=== PATIENT | male | born 1955 | race Caucasian/White ===

== ENCOUNTER 2023-10-20 15:29 | Inpatient (IN) | payer MEDICARE, OTHER ==
[~2023-10-20] VITALS: Ht 167.6 cm; Wt 52.6 kg
[2023-10-20 16:07] LABS: BASOPHILS % (AUTO) 0.3 % (0.0-2.0); HEMATOCRIT 46 % (39-51); HEMOGLOBIN 14.9 g/dL (13.5-17.5); LYMPHOCYTES # (AUTO) 0.8 K/uL (0.8-4.8); LYMPHOCYTES % (AUTO) 5.2 % (20.0-44.0); MEAN CORPUSCULAR HEMOGLOBIN 30 PG (26.0-33.0); MEAN CORPUSCULAR HGB CONC 33 g/dl (31.0-36.0); MEAN CORPUSCULAR VOLUME 93 fL (80-96); MONOCYTES # (AUTO) 1.1 K/uL (0.1-1.30); MONOCYTES % (AUTO) 7.9 % (2.0-12.0); NEUTROPHILS # (AUTO) 12.6 K/uL (1.8-8.9); NEUTROPHILS % (AUTO) 86.6 % (43.0-81.0); PLATELET COUNT (AUTO) 276 K/uL (150-450); RED BLOOD CELL COUNT(AUTO) 4.94 MIL/uL (4.5-6.0); RED CELL DISTRIBUTION WIDTH 14.4 % (11.5-15.0); WHITE BLOOD COUNT (AUTO) 14.5 K/uL (4.3-11.0)
[2023-10-20 16:21] LABS: ALANINE AMINOTRANSFERASE 32 U/L (12-78); ALBUMIN 2.6 g/dL (3.4-5.0); ALKALINE PHOSPHATASE 87 U/L (46-116); ASPARTATE AMINOTRANSFERASE 7 U/L (15-37); BILIRUBIN,DIRECT 0.2 mg/dL (0.0-0.2); BILIRUBIN,TOTAL 0.6 mg/dL (0.2-1.0); CALCIUM, SERUM 9.5 mg/dL (8.5-10.1); CARBON DIOXIDE 35 mmol/L (21-32); CHLORIDE 93 mmol/L (98-107); CREATININE 0.4 mg/dL (0.6-1.3); GLUCOSE 215 mg/dL (74-106); LIPASE 18 U/L (16-77); POTASSIUM 4.1 mmol/L (3.5-5.1); SODIUM SERUM 132 mmol/L (136-145); TOTAL PROTEIN, SERUM 6.9 g/dL (6.4-8.2); UREA NITROGEN, BLOOD 19 mg/dL (7-18)
[2023-10-20 16:23] LABS: LACTIC ACID 1.5 mmol/L (0.4-2.0)
[2023-10-20] MEDS ORDERED: Z GUARD REMEDY 4 OZ OINT TP PRN (16:30)
[2023-10-20] MEDS ORDERED: hydrALAZINE HCL IV 20 MG VIAL IV PRN (16:30)
[2023-10-20] MEDS ORDERED: ONDANSETRON HCL/PF 4 MG/2 ML VIAL IVP PRN (16:30)
[2023-10-20] MEDS ORDERED: MORPHINE SULFATE INJ 2 MG/ML DISP.SYRIN IV PRN (16:30)
[2023-10-20] MEDS ORDERED: ACETAMINOPHEN 325 MG TABLET PO PRN (16:30)
[2023-10-20] MEDS ORDERED: DEXTROSE 50%-WATER 50 ML DISP.SYRIN IV PRN (16:30)
[2023-10-20] MEDS ORDERED: IV NS 0.9% 250 ML IV ONE (16:44)
[2023-10-20] MEDS ORDERED: IOHEXOL-300 100 ML VIAL IV ONE (16:44)
[2023-10-20 16:56] LABS: INR 1.08 (0.91-1.10); PARTIAL THROMBOPLASTIN TIME 28.1 SEC (24.3-34.3); PROTHROMBIN TIME 11.4 SECS (9.2-11.1)
[2023-10-20] MEDS ORDERED: DOCU100C36 PO (16:58)
[2023-10-20] MEDS ORDERED: ALBU2.5V11 IH (16:58)
[2023-10-20] MEDS ORDERED: ATOR20TA PO (16:58)
[2023-10-20] MEDS ORDERED: ALBU2.5V38 IH (16:58)
[2023-10-20] MEDS ORDERED: ENOX40DI SQ (16:58)
[2023-10-20] MEDS ORDERED: FAMO20TA8 PO (16:58)
[2023-10-20] MEDS ORDERED: INSU100V39 SQ (16:58)
[2023-10-20] MEDS ORDERED: SODI100037 PO (16:58)
[2023-10-20] MEDS ORDERED: HALO1TAB PO (16:58)
[2023-10-20] MEDS ORDERED: MIRT-90 PO (16:58)
[2023-10-20] MEDS ORDERED: GLUC1KIT IM (16:58)
[2023-10-20] MEDS: IV NS 0.9% 1,000 ML BAG IV ONE (17:30)
[2023-10-20] MEDS: PANTOPRAZOLE 40 MG VIAL IV SCH (17:30)
[2023-10-20] MEDS: PANTOPRAZOLE 40 MG VIAL IV ONE (17:30)
[2023-10-20] MEDS: BLOOD SUGAR DIAGNOSTIC 1 EACH STRIP IN SCH (17:30)
[2023-10-20] MEDS: CEFTRIAXONE 1GM BAG (ER ONLY) 1 GM/50 ML PIGGYBACK IV ONE (17:30)
[2023-10-20] MEDS: ONDANSETRON HCL/PF 4 MG/2 ML VIAL IVP ONE (17:35)
[2023-10-20 20:45] LABS: HEMOGLOBIN 14.9 g/dL (13.5-17.5)
[2023-10-20] MEDS: IV NS 0.9% 1,000 ML IV SCH (23:00)
[2023-10-20] MEDS: INSULIN REGULAR, HUMAN 100 UNIT/ML 3 ML VIAL SQ PRN (23:46)
[2023-10-20] MEDS: VANCOMYCIN 1 GM in IV D5W 250ml IV ONE (23:52)
[2023-10-20] MEDS: VANCOMYCIN 1 GM /D5W 250 ML PB IV ONE (23:57)
[2023-10-21] VITALS (7 sets, daily range): BP systolic 98–110; BP diastolic 50–72; TEMP 98–98.6; O2SAT 92–99
[2023-10-21 04:30] LABS: BASOPHILS % (AUTO) 0.2 % (0.0-2.0); EOSINOPHILS % (AUTO) 0.2 % (0.0-6.0); HEMATOCRIT 44 % (39-51); LYMPHOCYTES # (AUTO) 1.2 K/uL (0.8-4.8); MEAN CORPUSCULAR HEMOGLOBIN 31 PG (26.0-33.0); MEAN CORPUSCULAR HGB CONC 32 g/dl (31.0-36.0); MEAN CORPUSCULAR VOLUME 96 fL (80-96); MONOCYTES # (AUTO) 1.8 K/uL (0.1-1.30); MONOCYTES % (AUTO) 10.9 % (2.0-12.0); NEUTROPHILS # (AUTO) 13.7 K/uL (1.8-8.9); NEUTROPHILS % (AUTO) 81.7 % (43.0-81.0); PLATELET COUNT (AUTO) 205 K/uL (150-450); RED BLOOD CELL COUNT(AUTO) 4.55 MIL/uL (4.5-6.0); RED CELL DISTRIBUTION WIDTH 14.7 % (11.5-15.0); WHITE BLOOD COUNT (AUTO) 16.7 K/uL (4.3-11.0)
[2023-10-21 05:59] LABS: ALBUMIN 2.3 g/dL (3.4-5.0); BILIRUBIN,TOTAL 0.5 mg/dL (0.2-1.0); CREATININE 0.5 mg/dL (0.6-1.3); MAGNESIUM 1.7 mg/dL (1.8-2.4); PHOSPHORUS 3.9 mg/dL (2.5-4.9); POTASSIUM 4.3 mmol/L (3.5-5.1); TOTAL PROTEIN, SERUM 6.5 g/dL (6.4-8.2)
[2023-10-21] MEDS: VANCOMYCIN 1 GM in IV D5W 250ml IV SCH (07:53)
[2023-10-21] MEDS: Magnesium 1GM/D5W 100ML PREMIX 100 ML IV SCH (09:58)
[2023-10-21] MEDS: CEFEPIME 2 GM in IV D5W 100 ML IV SCH (14:44)
[2023-10-21] MEDS: IV NS 0.9% 1,000 ML IV PRN (15:32)
[2023-10-21 20:21] LABS: HEMOGLOBIN 12.7 g/dL (13.5-17.5)
[2023-10-21] MEDS ORDERED: CEFEPIME 1 GM in IV D5W 50 ML IV SCH (21:03)
[2023-10-22] VITALS (7 sets, daily range): BP systolic 91–138; BP diastolic 63–80; TEMP 97.4–98.6; O2SAT 94–99
[2023-10-22 06:41] LABS: BASOPHILS # (AUTO) 0.1 K/uL (0.0-0.2); BASOPHILS % (AUTO) 0.8 % (0.0-2.0); EOSINOPHILS # (AUTO) 0.2 K/uL (0.0-0.7); EOSINOPHILS % (AUTO) 2.4 % (0.0-6.0); HEMATOCRIT 39 % (39-51); HEMOGLOBIN 12.8 g/dL (13.5-17.5); LYMPHOCYTES # (AUTO) 1.2 K/uL (0.8-4.8); LYMPHOCYTES % (AUTO) 15.2 % (20.0-44.0); MEAN CORPUSCULAR HEMOGLOBIN 31 PG (26.0-33.0); MEAN CORPUSCULAR HGB CONC 33 g/dl (31.0-36.0); MEAN CORPUSCULAR VOLUME 93 fL (80-96); MONOCYTES # (AUTO) 0.8 K/uL (0.1-1.30); MONOCYTES % (AUTO) 11.2 % (2.0-12.0); NEUTROPHILS # (AUTO) 5.4 K/uL (1.8-8.9); NEUTROPHILS % (AUTO) 70.4 % (43.0-81.0); PLATELET COUNT (AUTO) 183 K/uL (150-450); RED BLOOD CELL COUNT(AUTO) 4.15 MIL/uL (4.5-6.0); RED CELL DISTRIBUTION WIDTH 14.4 % (11.5-15.0); WHITE BLOOD COUNT (AUTO) 7.6 K/uL (4.3-11.0)
[2023-10-22 07:04] LABS: CALCIUM, SERUM 8.6 mg/dL (8.5-10.1); CREATININE 0.3 mg/dL (0.6-1.3); MAGNESIUM 1.9 mg/dL (1.8-2.4); PHOSPHORUS 2.7 mg/dL (2.5-4.9); POTASSIUM 3.5 mmol/L (3.5-5.1)
[2023-10-22] MEDS: BISACODYL SUPP (10 MG) 10 MG/SUPP.RECT SUPP.RECT RC ONE (08:32)
[2023-10-22] MEDS: DOCUSATE SODIUM 100 MG CAPSULE PO SCH (08:43)
[2023-10-22] MEDS: ENSURE CLEAR 237 ML LIQUID (MIX BERRY) PO SCH (08:43)
[2023-10-22 13:14] LABS: HEMOGLOBIN 12.6 g/dL (13.5-17.5)
[2023-10-22 20:59] LABS: HEMOGLOBIN 12.9 g/dL (13.5-17.5)
[2023-10-22] MEDS: SENNOSIDES 8.6 MG TABLET PO SCH (21:36)
[2023-10-23] VITALS: BP 103/69; TEMP 98.4; O2SAT 99
[2023-10-23 04:00] VITALS: BP 112/68; TEMP 97.9; O2SAT 100
[2023-10-23 04:29] LABS: BASOPHILS % (AUTO) 0.6 % (0.0-2.0); EOSINOPHILS # (AUTO) 0.2 K/uL (0.0-0.7); EOSINOPHILS % (AUTO) 3.3 % (0.0-6.0); HEMATOCRIT 40 % (39-51); HEMOGLOBIN 13.2 g/dL (13.5-17.5); LYMPHOCYTES # (AUTO) 1.2 K/uL (0.8-4.8); LYMPHOCYTES % (AUTO) 17.2 % (20.0-44.0); MEAN CORPUSCULAR HEMOGLOBIN 31 PG (26.0-33.0); MEAN CORPUSCULAR HGB CONC 33 g/dl (31.0-36.0); MEAN CORPUSCULAR VOLUME 95 fL (80-96); MONOCYTES # (AUTO) 1.1 K/uL (0.1-1.30); MONOCYTES % (AUTO) 16.4 % (2.0-12.0); NEUTROPHILS # (AUTO) 4.3 K/uL (1.8-8.9); NEUTROPHILS % (AUTO) 62.5 % (43.0-81.0); PLATELET COUNT (AUTO) 196 K/uL (150-450); RED BLOOD CELL COUNT(AUTO) 4.22 MIL/uL (4.5-6.0); RED CELL DISTRIBUTION WIDTH 14.3 % (11.5-15.0); WHITE BLOOD COUNT (AUTO) 6.9 K/uL (4.3-11.0)
[2023-10-23 05:05] LABS: CALCIUM, SERUM 8.5 mg/dL (8.5-10.1); CREATININE 0.4 mg/dL (0.6-1.3); POTASSIUM 3.5 mmol/L (3.5-5.1)
[2023-10-23 08:00] VITALS: BP 103/82; TEMP 97; O2SAT 100
[2023-10-23 12:00] VITALS: BP 109/70; TEMP 97.5; O2SAT 100
[2023-10-23 12:33] LABS: HEMOGLOBIN 13.4 g/dL (13.5-17.5)
[2023-10-23 16:00] VITALS: BP 112/72; TEMP 98.4; O2SAT 100
[2023-10-23 20:28] LABS: HEMOGLOBIN 13.3 g/dL (13.5-17.5)
[2023-10-24] VITALS: BP 104/57; TEMP 98.3; O2SAT 100
[2023-10-24 04:00] VITALS: BP 104/57; TEMP 98.3; O2SAT 100
[2023-10-24 04:25] LABS: HEMOGLOBIN 12.9 g/dL (13.5-17.5)
[2023-10-24 04:37] LABS: CALCIUM, SERUM 8.5 mg/dL (8.5-10.1); CREATININE 0.2 mg/dL (0.6-1.3); POTASSIUM 3.3 mmol/L (3.5-5.1)
[2023-10-24 08:45] VITALS: BP 125/74; TEMP 97.9; O2SAT 99
[2023-10-24 09:06] VITALS: O2SAT 95
[2023-10-24] MEDS: POTASSIUM CHLORIDE 20 MEQ TAB.PRT.SR PO SCH (10:33)
[2023-10-24 12:30] LABS: HEMOGLOBIN 13.6 g/dL (13.5-17.5)
[2023-10-24 16:00] VITALS: BP 122/79; TEMP 97.9; O2SAT 95
[2023-10-25] MEDS ORDERED: VANCOMYCIN 750 MG in IV D5W 250 ML IV SCH
== END 2023-10-24 18:10 | DRG 871 ==
LOC: ER 15:48 → TELE 19:16 → TELE-TD 20:21 → TELE1 10-22 06:50 → MEDSG1 10-23 14:32
PROVIDERS: ADMIT Internal Medicine
DX: A41.9 Sepsis, unspecified organism (principal); E43 Unspecified severe protein-calorie malnutrition; K20.91 Esophagitis, unspecified with bleeding; J96.10 Chronic respiratory failure, unspecified whether with hypoxia or hypercapnia; E87.1 Hypo-osmolality and hyponatremia; J44.9 Chronic obstructive pulmonary disease, unspecified; F20.9 Schizophrenia, unspecified; Z86.711 Personal history of pulmonary embolism; E11.22 Type 2 diabetes mellitus with diabetic chronic kidney disease; N18.9 Chronic kidney disease, unspecified; F31.9 Bipolar disorder, unspecified; Z79.4 Long term (current) use of insulin; Z79.899 Other long term (current) drug therapy; Z79.01 Long term (current) use of anticoagulants; Z79.51 Long term (current) use of inhaled steroids; E78.5 Hyperlipidemia, unspecified; E88.09 Other disorders of plasma-protein metabolism, not elsewhere classified; R65.20 Severe sepsis without septic shock; J43.9 Emphysema, unspecified; E11.65 Type 2 diabetes mellitus with hyperglycemia; K44.9 Diaphragmatic hernia without obstruction or gangrene; N21.0 Calculus in bladder; F39 Unspecified mood [affective] disorder
CPT/HCPCS: 36415; 71045-TC; 80048-TC; 80053-TC; 80076-TC; 80202-TC; 82962-TC; 83605-TC; 83690-TC; 83735-TC; 84100-TC; 84484-TC; 85025-TC; 85027-TC; 85730-TC; 86850-TC; 87081-TC; 94799-TC; A4223; G0378; J0692; J0696; J1815; J2405; J2470; J3370; J3371; J3475; J7030; J7050; J7060; Q9967